=== PATIENT | female | born 1985 | race African-American/Black ===

== ENCOUNTER 2021-09-08 14:33 | Emergency (ER) | payer MEDICARE, MEDICAID ==
[~2021-09-08] VITALS: Ht 167.6 cm; Wt 61.0 kg
[~2021-09-08 14:33] MED LIST: ALBU6.7H15
[2021-09-08] MEDS ORDERED: METHYLPREDNISOLONE SOD SUCC 125 MG/2 ML VIAL IV STA (15:05)
[2021-09-08] MEDS ORDERED: IPRATROPIUM BROMIDE (0.02%) 0.5MG/2.5ML NEB HHN STA (15:05)
[2021-09-08] MEDS ORDERED: MAGNESIUM 2 G PREMIX 50 ML IV ONE (15:15)
[2021-09-08 15:39] LABS: BASOPHILS % 0.2 % (0.0-2.0); EOSINOPHILS % 0.3 % (0.0-5.0); HEMATOCRIT. 38.6 % (36.0-48.0); HEMOGLOBIN. 12.1 g/dL (12.0-16.0); LYMPHOCYTES % 23.9 % (20.0-50.0); MEAN CORPUSCULAR HEMOGLOBIN 23.6 pg (28.0-32.0); MEAN CORPUSCULAR VOLUME 75.2 fL (81.0-99.0); MONOCYTES % 12.5 % (2.0-8.0); NEUTROPHILS % 63.1 % (40.0-76.0); PLATELET 306 x1000/uL (130-400); RED BLOOD CELL COUNT 5.13 mill/uL (4.2-5.4); RED CELL DISTRIBUTION WIDTH 15.9 % (11.6-14.6)
[2021-09-08 15:44] LABS: CHLORIDE 108 mEq/L (98-107)
[2021-09-08] MEDS: ALBUTEROL (0.083%) 2.5MG/3ML NEB HHN SCH ×2 (16:07→16:08)
[2021-09-08] MEDS ORDERED: ALBU90AE INH (17:41)
[2021-09-08] MEDS ORDERED: PRED10TA PO (17:41)
[2021-09-08 18:05] VITALS: BP 139/89
== END 2021-09-08 18:07 | disposition left against medical advice (07) ==
LOC: ER 14:54
DX: J45.901 Unspecified asthma with (acute) exacerbation (principal); Z91.010 Allergy to peanuts; Z91.013 Allergy to seafood
CPT/HCPCS: 36415; 71045; 80053; 83880; 84484; 85025; 93005; 96365; 96375; 99285; J2930; J3475

== ENCOUNTER 2021-09-08 19:30 | Inpatient (IN) | payer MEDICARE, MEDICAID ==
[~2021-09-08] VITALS: Ht 170.2 cm; Wt 59.1 kg
[~2021-09-08 19:30] MED LIST changes: +ALBU90AE INH; +PRED10TA PO
[2021-09-08] MEDS ORDERED: IPRATROPIUM BROMIDE (0.02%) 0.5MG/2.5ML NEB HHN STA (20:01)
[2021-09-08] MEDS ORDERED: ALBUTEROL (0.083%) 2.5MG/3ML NEB HHN STA (20:01)
[2021-09-09] MEDS ORDERED: METHYLPREDNISOLONE SOD SUCC 125 MG/2 ML VIAL IV ONE (01:30)
[2021-09-09] MEDS ORDERED: MAGNESIUM 2 G PREMIX 50 ML IV SCH (02:00)
[2021-09-09] MEDS ORDERED: ALBUTEROL (0.083%) 2.5MG/3ML NEB HHN SCH ×2 (02:00→18:00)
[2021-09-09 04:00] VITALS: BP 126/89
[2021-09-09] MEDS: METHYLPREDNISOLONE SOD SUCC 40 MG/ML VIAL IV SCH ×3 (07:38→22:08)
[2021-09-09 08:00] VITALS: BP 123/74
[2021-09-09 08:07] VITALS: BP 112/76
[2021-09-09 11:31] LABS: BG CARBOXYHEMOGLOBIN 0.6 % (0.5-1.5); BG DEOXYHEMOGLOBIN 2.6 % (0.0-5.0); BG FRACTION INSPIRED OXYGEN 28; BG HCO3 ACT 28.9 mmol/L (22.0-26.0); BG METHEMOGLOBIN 0.4 % (0.0-1.5); BG OXYGEN SATURATION 97.4 % (92.0-98.5); BG OXYHEMOGLOBIN 96.4 % (94.0-97.0); BG PCO2 44.8 mmHg (35.0-45.0); BG PH 7.428 (7.350-7.450); BG PO2 99.1 mmHg (75.0-100.0); BG SAMPLE SITE RIGHT BRACHIAL; BG VENT MODE NASAL CANNULA
[2021-09-09 12:00] VITALS: BP 122/73
[2021-09-09] MEDS ORDERED: HYDROCODONE/ACETAMINOPHEN 5/325MG TABLET PO NR (12:00)
[2021-09-09] MEDS ORDERED: NALOXONE HCL 0.4MG/ML VIAL IV PRN ×2 (12:00→18:15)
[2021-09-09] MEDS: GUAIFENESIN 600MG ER TABLET PO SCH ×2 (14:25→22:08)
[2021-09-09 16:00] VITALS: BP 120/66
[2021-09-09 16:09] LABS: CHLORIDE 104 mEq/L (98-107)
[2021-09-09 16:13] LABS: HEMATOCRIT. 37.8 % (36.0-48.0); HEMOGLOBIN. 12.2 g/dL (12.0-16.0); LYMPHOCYTES % 8.9 % (20.0-50.0); MEAN CORPUSCULAR HEMOGLOBIN 23.5 pg (28.0-32.0); MEAN CORPUSCULAR VOLUME 72.9 fL (81.0-99.0); MEAN PLATELET VOLUME 8.5 fl (7.4-10.4); MONOCYTES % 3.6 % (2.0-8.0); NEUTROPHILS % 87.5 % (40.0-76.0); PLATELET 327 x1000/uL (130-400); RED BLOOD CELL COUNT 5.18 mill/uL (4.2-5.4); RED CELL DISTRIBUTION WIDTH 16.2 % (11.6-14.6)
[2021-09-09] MEDS ORDERED: IPRATROPIUM/ALBUTEROL 0.5-3(2.5)MG/3ML NEB HHN PRN (16:15)
[2021-09-09] MEDS: LORATADINE 10MG TABLET PO SCH (18:02)
[2021-09-09] MEDS: OXYCODONE HCL 5MG TABLET PO PRN (18:49)
[2021-09-09 20:00] VITALS: BP 107/62
[2021-09-09] MEDS: IPRATROPIUM/ALBUTEROL 0.5-3(2.5)MG/3ML NEB HHN SCH (20:59)
[2021-09-09] MEDS: FAMOTIDINE 20MG TABLET PO SCH (22:08)
[2021-09-10] VITALS: BP 102/59
[2021-09-10 04:00] VITALS: BP 115/79
[2021-09-10] MEDS: OXYCODONE HCL 5MG TABLET PO PRN ×2 (04:57→16:53)
[2021-09-10] MEDS: METHYLPREDNISOLONE SOD SUCC 40 MG/ML VIAL IV SCH ×3 (04:59→21:56)
[2021-09-10] MEDS: IPRATROPIUM/ALBUTEROL 0.5-3(2.5)MG/3ML NEB HHN SCH ×5 (05:21→21:40)
[2021-09-10 06:25] LABS: BASOPHILS % 0.1 % (0.0-2.0); HEMATOCRIT. 41.1 % (36.0-48.0); LYMPHOCYTES % 10.4 % (20.0-50.0); MEAN CORPUSCULAR HEMOGLOBIN 23.7 pg (28.0-32.0); MEAN CORPUSCULAR VOLUME 74.8 fL (81.0-99.0); MEAN PLATELET VOLUME 8.7 fl (7.4-10.4); MONOCYTES % 7.4 % (2.0-8.0); NEUTROPHILS % 82.1 % (40.0-76.0); PLATELET 356 x1000/uL (130-400); RED BLOOD CELL COUNT 5.49 mill/uL (4.2-5.4); RED CELL DISTRIBUTION WIDTH 15.7 % (11.6-14.6)
[2021-09-10 06:28] LABS: CHLORIDE 104 mEq/L (98-107)
[2021-09-10 08:00] VITALS: BP 102/70
[2021-09-10] MEDS: LIDOCAINE 5% PATCH TOP SCH (09:00)
[2021-09-10] MEDS: LORATADINE 10MG TABLET PO SCH (09:16)
[2021-09-10] MEDS: FAMOTIDINE 20MG TABLET PO SCH ×2 (09:16→21:56)
[2021-09-10] MEDS: GUAIFENESIN 600MG ER TABLET PO SCH ×2 (09:17→21:56)
[2021-09-10] MEDS: ACETAMINOPHEN 325MG TABLET PO PRN (09:29)
[2021-09-10 12:00] VITALS: BP 92/95
[2021-09-10 16:00] VITALS: BP 116/72
[2021-09-11] VITALS: BP 108/75
[2021-09-11] MEDS: IPRATROPIUM/ALBUTEROL 0.5-3(2.5)MG/3ML NEB HHN SCH ×3 (01:27→09:55)
[2021-09-11] MEDS: OXYCODONE HCL 5MG TABLET PO PRN (01:30)
[2021-09-11 04:00] VITALS: BP 107/67
[2021-09-11] MEDS: METHYLPREDNISOLONE SOD SUCC 40 MG/ML VIAL IV SCH (05:44)
[2021-09-11 08:00] VITALS: BP 90/56
[2021-09-11] MEDS: LIDOCAINE 5% PATCH TOP SCH ×2 (09:00→09:02)
[2021-09-11] MEDS: GUAIFENESIN 600MG ER TABLET PO SCH (09:01)
[2021-09-11] MEDS: LORATADINE 10MG TABLET PO SCH (09:01)
[2021-09-11] MEDS: FAMOTIDINE 20MG TABLET PO SCH (09:01)
[2021-09-11] MEDS: ACETAMINOPHEN 325MG TABLET PO PRN (10:34)
[2021-09-11 12:00] VITALS: BP 96/60
[2021-09-11] MEDS ORDERED: MONTELUKAST SODIUM 10MG TABLET PO SCH (17:00)
== END 2021-09-11 12:15 | disposition left against medical advice (07) | DRG 189 ==
LOC: ER 19:30 → 8WST 09-09 01:16 → ENRESERV 09-09 02:34
PROVIDERS: ADMIT Family Medicine Adult Medicine; ATTEND Family Medicine Adult Medicine
DX: J96.00 Acute respiratory failure, unspecified whether with hypoxia or hypercapnia (principal); J45.901 Unspecified asthma with (acute) exacerbation; F17.210 Nicotine dependence, cigarettes, uncomplicated; G89.29 Other chronic pain; Z53.29 Procedure and treatment not carried out because of patient's decision for other reasons; M54.9 Dorsalgia, unspecified; Z91.010 Allergy to peanuts; Z91.013 Allergy to seafood; Z71.6 Tobacco abuse counseling
CPT/HCPCS: 36415; 36600; 80048; 82375; 82805; 85025; 94640; 99285; J2920; J3475

== ENCOUNTER 2022-09-15 02:35 | Inpatient (IN) | payer MEDICARE, MEDICAID ==
[2022-09-15] VITALS (8 sets, daily range): BP systolic 120–142; BP diastolic 77–96
[~2022-09-15] VITALS: Ht 170.2 cm; Wt 59.0 kg
[~2022-09-15 02:35] MED LIST changes: -ALBU6.7H15
[2022-09-15] MEDS ORDERED: METHYLPREDNISOLONE SOD SUCC 125 MG/2 ML VIAL IV STA (02:52)
[2022-09-15] MEDS ORDERED: ALBUTEROL (0.083%) 2.5MG/3ML NEB HHN STA ×2 (02:52→03:56)
[2022-09-15] MEDS ORDERED: IPRATROPIUM BROMIDE (0.02%) 0.5MG/2.5ML NEB HHN STA (02:52)
[2022-09-15] MEDS ORDERED: ASPIRIN 81MG TABLET PO ONE (03:00)
[2022-09-15] MEDS ORDERED: MAGNESIUM 2 G PREMIX 50 ML IV ONE (03:15)
[2022-09-15 03:22] LABS: EOSINOPHILS % 9.8 % (0.0-5.0); HEMATOCRIT. 37.7 % (36.0-48.0); HEMOGLOBIN. 11.7 g/dL (12.0-16.0); LYMPHOCYTES % 34.9 % (20.0-50.0); MEAN CORPUSCULAR HEMOGLOBIN 23.6 pg (28.0-32.0); MEAN CORPUSCULAR VOLUME 75.6 fL (81.0-99.0); MEAN PLATELET VOLUME 8.4 fl (7.4-10.4); MONOCYTES % 9.9 % (2.0-8.0); NEUTROPHILS % 44.4 % (40.0-76.0); PLATELET 316 x1000/uL (130-400); RED BLOOD CELL COUNT 4.99 mill/uL (4.2-5.4); RED CELL DISTRIBUTION WIDTH 15.8 % (11.6-14.6)
[2022-09-15 03:46] LABS: HCG SCREEN NEGATIVE
[2022-09-15 04:31] LABS: CHLORIDE 112 mEq/L (98-107)
[2022-09-15 05:30] LABS: BG BASE EXCESS -6.3 mmol/L (-2.0-2.0); BG CARBOXYHEMOGLOBIN 0.4 % (0.5-1.5); BG DEOXYHEMOGLOBIN 1.1 % (0.0-5.0); BG FRACTION INSPIRED OXYGEN 60; BG HCO3 ACT 19.3 mmol/L (22.0-26.0); BG METHEMOGLOBIN 0.3 % (0.0-1.5); BG OXYGEN SATURATION 98.9 % (92.0-98.5); BG OXYHEMOGLOBIN 98.2 % (94.0-97.0); BG PCO2 38.5 mmHg (35.0-45.0); BG PH 7.318 (7.350-7.450); BG TOTAL HEMOGLOBIN 12.3 g/dL (12.0-18.0); BG VENT MODE MASK - BIPAP
[2022-09-15] MEDS ORDERED: IPRATROPIUM/ALBUTEROL 0.5-3(2.5)MG/3ML NEB HHN ONE (08:30)
[2022-09-15] MEDS: METHYLPREDNISOLONE SOD SUCC 125 MG/2 ML VIAL IV SCH ×3 (09:07→21:19)
[2022-09-15 09:18] LABS: BG BASE EXCESS -7.8 mmol/L (-2.0-2.0); BG CARBOXYHEMOGLOBIN 0.3 % (0.5-1.5); BG DEOXYHEMOGLOBIN 1.8 % (0.0-5.0); BG FRACTION INSPIRED OXYGEN 40; BG HCO3 ACT 17.6 mmol/L (22.0-26.0); BG METHEMOGLOBIN 0.1 % (0.0-1.5); BG OXYGEN SATURATION 98.2 % (92.0-98.5); BG OXYHEMOGLOBIN 97.8 % (94.0-97.0); BG PCO2 35.7 mmHg (35.0-45.0); BG PH 7.311 (7.350-7.450); BG PO2 114.9 mmHg (75.0-100.0); BG SAMPLE SITE RIGHT BRACHIAL; BG TOTAL HEMOGLOBIN 12.4 g/dL (12.0-18.0); BG TOTAL RESPIRATORY RATE 21 b/min; BG VENT MODE MASK - BIPAP
[2022-09-15] MEDS ORDERED: MAGNESIUM/ALUMINUM HYDROXIDE/SIMETHICONE 30ML UDC PO PRN (09:45)
[2022-09-15] MEDS ORDERED: ONDANSETRON HCL 4MG/2ML INJ IV PRN (09:45)
[2022-09-15] MEDS ORDERED: ACETAMINOPHEN 325MG TABLET PO PRN (09:45)
[2022-09-15] MEDS ORDERED: GUAIFENESIN 200MG/10ML SUGAR FREE UDC PO PRN (09:45)
[2022-09-15] MEDS: IPRATROPIUM BROMIDE (0.02%) 0.5MG/2.5ML NEB HHN SCH ×2 (11:00→20:48)
[2022-09-15] MEDS ORDERED: LORAZEPAM 1MG TABLET PO PRN (11:30)
[2022-09-15] MEDS ORDERED: NICOTINE 21MG PATCH TD NR (12:00)
[2022-09-15] MEDS: SODIUM CHLORIDE 0.9% INJ 3ML FLUSH IVF SCH ×2 (14:00→22:00)
[2022-09-15] MEDS: LORAZEPAM 2MG/ML CPJ IV PRN (21:13)
[2022-09-15] MEDS: FAMOTIDINE 20MG TABLET PO SCH (21:19)
[2022-09-16] VITALS (18 sets, daily range): BP systolic 112–158; BP diastolic 48–93
[2022-09-16] MEDS: IPRATROPIUM BROMIDE (0.02%) 0.5MG/2.5ML NEB HHN SCH ×6 (00:25→20:39)
[2022-09-16] MEDS: ZOLPIDEM TARTRATE 5MG TABLET PO PRN ×2 (00:27→20:47)
[2022-09-16] MEDS: SODIUM CHLORIDE 0.9% INJ 3ML FLUSH IVF SCH ×3 (06:00→20:47)
[2022-09-16] MEDS: LORAZEPAM 2MG/ML CPJ IV PRN ×2 (06:01→21:06)
[2022-09-16] MEDS: METHYLPREDNISOLONE SOD SUCC 125 MG/2 ML VIAL IV SCH ×3 (06:01→20:47)
[2022-09-16] MEDS: IPRATROPIUM BROMIDE (0.02%) 0.5MG/2.5ML NEB HHN PRN ×2 (06:41→17:57)
[2022-09-16] MEDS: FAMOTIDINE 20MG TABLET PO SCH ×2 (08:58→20:47)
[2022-09-16 16:43] LABS: BG BASE EXCESS -1.9 mmol/L (-2.0-2.0); BG CARBOXYHEMOGLOBIN 0.7 % (0.5-1.5); BG DEOXYHEMOGLOBIN 1.1 % (0.0-5.0); BG FRACTION INSPIRED OXYGEN 30; BG HCO3 ACT 22.7 mmol/L (22.0-26.0); BG METHEMOGLOBIN 0.3 % (0.0-1.5); BG OXYGEN SATURATION 98.9 % (92.0-98.5); BG OXYHEMOGLOBIN 97.9 % (94.0-97.0); BG PCO2 38.2 mmHg (35.0-45.0); BG PH 7.391 (7.350-7.450); BG PO2 153.1 mmHg (75.0-100.0); BG SAMPLE SITE RIGHT RADIAL; BG TOTAL HEMOGLOBIN 13.3 g/dL (12.0-18.0); BG VENT MODE MASK - BIPAP
[2022-09-17] VITALS (10 sets, daily range): BP systolic 109–159; BP diastolic 51–89
[2022-09-17] MEDS: IPRATROPIUM BROMIDE (0.02%) 0.5MG/2.5ML NEB HHN SCH ×4 (00:27→12:30)
[2022-09-17] MEDS: ACETAMINOPHEN 325MG TABLET PO PRN (03:10)
[2022-09-17] MEDS: METHYLPREDNISOLONE SOD SUCC 125 MG/2 ML VIAL IV SCH ×3 (05:11→22:59)
[2022-09-17] MEDS: LORAZEPAM 2MG/ML CPJ IV PRN ×4 (05:11→23:00)
[2022-09-17] MEDS: DIPHENHYDRAMINE 50MG/ML VIAL IV PRN (05:11)
[2022-09-17] MEDS: SODIUM CHLORIDE 0.9% INJ 3ML FLUSH IVF SCH ×3 (05:12→23:00)
[2022-09-17] MEDS: IPRATROPIUM BROMIDE (0.02%) 0.5MG/2.5ML NEB HHN PRN ×2 (09:55→16:55)
[2022-09-17] MEDS: FAMOTIDINE 20MG TABLET PO SCH ×2 (10:22→22:59)
[2022-09-17] MEDS: DEXT 5%/0.45% NACL KCL 10MEQ/L 1,000 ML IV SCH ×2 (11:10→22:59)
[2022-09-17] MEDS: LORATADINE 10MG TABLET PO SCH (14:01)
[2022-09-17] MEDS ORDERED: TERBUTALINE SULFATE 1MG/ML VIAL SUBCUT NR (15:00)
[2022-09-17] MEDS: MONTELUKAST SODIUM 10MG TABLET PO SCH (17:39)
[2022-09-17] MEDS: IPRATROPIUM/ALBUTEROL 0.5-3(2.5)MG/3ML NEB HHN SCH (20:01)
[2022-09-17] MEDS: ZOLPIDEM TARTRATE 5MG TABLET PO PRN (22:59)
[2022-09-18] VITALS (13 sets, daily range): BP systolic 79–146; BP diastolic 42–90
[2022-09-18] MEDS: IPRATROPIUM/ALBUTEROL 0.5-3(2.5)MG/3ML NEB HHN SCH ×6 (04:03→20:59)
[2022-09-18] MEDS: DEXT 5%/0.45% NACL KCL 10MEQ/L 1,000 ML IV SCH ×3 (05:03→22:25)
[2022-09-18] MEDS: METHYLPREDNISOLONE SOD SUCC 125 MG/2 ML VIAL IV SCH ×3 (05:03→18:13)
[2022-09-18] MEDS: SODIUM CHLORIDE 0.9% INJ 3ML FLUSH IVF SCH ×3 (05:03→20:14)
[2022-09-18] MEDS: LORAZEPAM 2MG/ML CPJ IV PRN ×2 (06:03→18:14)
[2022-09-18 06:36] LABS: EOSINOPHILS % 0.1 % (0.0-5.0); HEMATOCRIT. 41.7 % (36.0-48.0); HEMOGLOBIN. 13.3 g/dL (12.0-16.0); LYMPHOCYTES % 8.4 % (20.0-50.0); MEAN CORPUSCULAR HEMOGLOBIN 23.8 pg (28.0-32.0); MEAN CORPUSCULAR VOLUME 74.9 fL (81.0-99.0); MEAN PLATELET VOLUME 8.8 fl (7.4-10.4); MONOCYTES % 6.2 % (2.0-8.0); NEUTROPHILS % 85.3 % (40.0-76.0); PLATELET 307 x1000/uL (130-400); RED BLOOD CELL COUNT 5.57 mill/uL (4.2-5.4); RED CELL DISTRIBUTION WIDTH 14.9 % (11.6-14.6)
[2022-09-18 08:10] LABS: CHLORIDE 104 mEq/L (98-107); PHOSPHORUS 2.6 mg/dL (2.5-4.9)
[2022-09-18] MEDS: FAMOTIDINE 20MG TABLET PO SCH ×2 (09:34→20:14)
[2022-09-18] MEDS: LORATADINE 10MG TABLET PO SCH (09:34)
[2022-09-18] MEDS ORDERED: IPRATROPIUM/ALBUTEROL 0.5-3(2.5)MG/3ML NEB HHN PRN (14:15)
[2022-09-18] MEDS: MONTELUKAST SODIUM 10MG TABLET PO SCH (18:14)
[2022-09-18] MEDS: GUAIFENESIN 600MG ER TABLET PO SCH (20:14)
[2022-09-18] MEDS: QUETIAPINE FUMARATE 25MG TABLET PO SCH (20:14)
[2022-09-19] VITALS (11 sets, daily range): BP systolic 108–143; BP diastolic 64–89
[2022-09-19] MEDS: IPRATROPIUM/ALBUTEROL 0.5-3(2.5)MG/3ML NEB HHN SCH ×7 (00:56→20:41)
[2022-09-19] MEDS: METHYLPREDNISOLONE SOD SUCC 125 MG/2 ML VIAL IV SCH ×5 (01:08→23:26)
[2022-09-19] MEDS: SODIUM CHLORIDE 0.9% INJ 3ML FLUSH IVF SCH ×3 (05:38→21:23)
[2022-09-19] MEDS: FAMOTIDINE 20MG TABLET PO SCH ×2 (09:39→21:15)
[2022-09-19] MEDS: QUETIAPINE FUMARATE 25MG TABLET PO SCH ×2 (09:39→21:17)
[2022-09-19] MEDS: GUAIFENESIN 600MG ER TABLET PO SCH ×2 (09:39→21:15)
[2022-09-19] MEDS: LORATADINE 10MG TABLET PO SCH (09:39)
[2022-09-19] MEDS: DEXT 5%/0.45% NACL KCL 10MEQ/L 1,000 ML IV SCH ×2 (12:29→23:21)
[2022-09-19] MEDS: MONTELUKAST SODIUM 10MG TABLET PO SCH (17:22)
[2022-09-19] MEDS: ACETAMINOPHEN 325MG TABLET PO PRN (21:17)
[2022-09-20] VITALS (10 sets, daily range): BP systolic 109–153; BP diastolic 62–103
[2022-09-20] MEDS: IPRATROPIUM/ALBUTEROL 0.5-3(2.5)MG/3ML NEB HHN SCH ×5 (00:46→20:17)
[2022-09-20] MEDS: SODIUM CHLORIDE 0.9% INJ 3ML FLUSH IVF SCH ×3 (04:57→21:31)
[2022-09-20] MEDS: METHYLPREDNISOLONE SOD SUCC 125 MG/2 ML VIAL IV SCH ×3 (04:57→17:48)
[2022-09-20] MEDS: GUAIFENESIN 600MG ER TABLET PO SCH ×2 (08:38→21:31)
[2022-09-20] MEDS: LORATADINE 10MG TABLET PO SCH (08:39)
[2022-09-20] MEDS: NICOTINE 21MG PATCH TD SCH (08:39)
[2022-09-20] MEDS: FAMOTIDINE 20MG TABLET PO SCH ×2 (08:39→21:31)
[2022-09-20] MEDS: QUETIAPINE FUMARATE 25MG TABLET PO SCH ×2 (08:39→21:31)
[2022-09-20] MEDS: ACETAMINOPHEN 325MG TABLET PO PRN ×3 (08:40→21:36)
[2022-09-20] MEDS: DEXT 5%/0.45% NACL KCL 10MEQ/L 1,000 ML IV SCH (10:03)
[2022-09-20 16:22] LABS: BG BASE EXCESS 0.9 mmol/L (-2.0-2.0); BG CARBOXYHEMOGLOBIN 1.2 % (0.5-1.5); BG DEOXYHEMOGLOBIN 7.1 % (0.0-5.0); BG HCO3 ACT 23.5 mmol/L (22.0-26.0); BG METHEMOGLOBIN 0.1 % (0.0-1.5); BG OXYGEN SATURATION 92.8 % (92.0-98.5); BG OXYHEMOGLOBIN 91.6 % (94.0-97.0); BG PCO2 31.9 mmHg (35.0-45.0); BG PH 7.486 (7.350-7.450); BG SAMPLE SITE RIGHT BRACHIAL; BG TOTAL HEMOGLOBIN 14.1 g/dL (12.0-18.0); BG VENT MODE ROOM AIR
[2022-09-20] MEDS: MONTELUKAST SODIUM 10MG TABLET PO SCH (17:48)
[2022-09-21] VITALS (7 sets, daily range): BP systolic 116–146; BP diastolic 73–100
[2022-09-21] MEDS: IPRATROPIUM/ALBUTEROL 0.5-3(2.5)MG/3ML NEB HHN SCH ×4 (00:22→11:14)
[2022-09-21] MEDS: DIPHENHYDRAMINE 50MG/ML VIAL IV PRN ×2 (00:57→13:37)
[2022-09-21] MEDS: METHYLPREDNISOLONE SOD SUCC 125 MG/2 ML VIAL IV SCH ×3 (00:57→13:36)
[2022-09-21] MEDS: SODIUM CHLORIDE 0.9% INJ 3ML FLUSH IVF SCH ×2 (07:08→13:37)
[2022-09-21] MEDS: ACETAMINOPHEN 325MG TABLET PO PRN (07:09)
[2022-09-21] MEDS: NICOTINE 21MG PATCH TD SCH (09:00)
[2022-09-21] MEDS: GUAIFENESIN 600MG ER TABLET PO SCH (10:08)
[2022-09-21] MEDS: QUETIAPINE FUMARATE 25MG TABLET PO SCH (10:08)
[2022-09-21] MEDS: LORATADINE 10MG TABLET PO SCH (10:08)
[2022-09-21] MEDS: FAMOTIDINE 20MG TABLET PO SCH (10:08)
== END 2022-09-21 14:30 | disposition home or self-care (01) | DRG 189 ==
LOC: ER 02:35 → 5EST 04:52 → EDBEDREQ 08:17 → ENRESERV 14:47 → 3WST 09-20 12:25
PROVIDERS: ADMIT Internal Medicine; ATTEND Internal Medicine
PROC: 5A09457 Assistance with Respiratory Ventilation, 24-96 Consecutive Hours, Continuous Positive Airway Pressure (ICD-10-PCS; principal; 2022-09-15)
DX: J96.01 Acute respiratory failure with hypoxia (principal); J44.1 Chronic obstructive pulmonary disease with (acute) exacerbation; J45.902 Unspecified asthma with status asthmaticus; E87.3 Alkalosis; F41.1 Generalized anxiety disorder; F17.210 Nicotine dependence, cigarettes, uncomplicated; Z91.010 Allergy to peanuts; Z91.013 Allergy to seafood
CPT/HCPCS: 36415; 36600; 71045; 80053; 82375; 82805; 83735; 83880; 84100; 84484; 84703; 85025; 93005; 93306; 94640; 94644; 94660; 97110; 97162; 99291; J1200; J2060; J2930; J3105; J3475

== ENCOUNTER 2022-11-11 00:11 | Inpatient (IN) | payer MEDICARE, MEDICAID ==
[~2022-11-11] VITALS: Ht 170.2 cm; Wt 62.1 kg
[2022-11-11] MEDS ORDERED: IPRATROPIUM BROMIDE (0.02%) 0.5MG/2.5ML NEB HHN STA (00:13)
[2022-11-11] MEDS ORDERED: METHYLPREDNISOLONE SOD SUCC 125 MG/2 ML VIAL IV STA (00:13)
[2022-11-11] MEDS ORDERED: MAGNESIUM 2 G PREMIX 50 ML IV ONE (00:15)
[2022-11-11] MEDS: ALBUTEROL (0.083%) 2.5MG/3ML NEB HHN SCH ×5 (00:35→19:28)
[2022-11-11 01:05] LABS: HEMATOCRIT. 37.1 % (36.0-48.0); HEMOGLOBIN. 11.6 g/dL (12.0-16.0); MEAN CORPUSCULAR HEMOGLOBIN 23.6 pg (28.0-32.0); MEAN CORPUSCULAR VOLUME 75.4 fL (81.0-99.0); MEAN PLATELET VOLUME 9.5 fl (7.4-10.4); PLATELET 240 x1000/uL (130-400); RED BLOOD CELL COUNT 4.92 mill/uL (4.2-5.4); RED CELL DISTRIBUTION WIDTH 15.3 % (11.6-14.6)
[2022-11-11 01:11] LABS: INR 1.1; PROTHROMBIN TIME 11.4 sec (9.6-11.0)
[2022-11-11 01:14] LABS: CHLORIDE 109 mEq/L (98-107)
[2022-11-11 01:28] LABS: ETHANOL BLOOD < 10 mg/dL
[2022-11-11] MEDS ORDERED: KETOROLAC 30MG/ML VIAL IV ONE (02:00)
[2022-11-11] MEDS ORDERED: IPRATROPIUM BROMIDE (0.02%) 0.5MG/2.5ML NEB HHN NR (03:30)
[2022-11-11 08:08] LABS: PLATELET ESTIMATE NORMAL
[2022-11-11 08:55] LABS: CLARITY URINE CLEAR (CLEAR); COLOR URINE YELLOW (YELLOW); KETONES URINE TRACE (NEGATIVE); LEUKOCYTE ESTERASE URINE NEGATIVE (NEGATIVE); NITRITE URINE NEGATIVE (NEGATIVE); OCCULT BLOOD URINE NEGATIVE (NEGATIVE); PROTEIN URINE NEGATIVE (NEGATIVE); SPECIFIC GRAVITY URINE 1.018 (1.005-1.030); UROBILINOGEN URINE 0.2 E.U./dL (0.2-1.0)
[2022-11-11 09:41] LABS: *AMPHETAMINES SCREEN URINE NEGATIVE (NEGATIVE); *BARBITURATES SCREEN URINE NEGATIVE (NEGATIVE); *BENZODIAZEPINES SCREEN URINE NEGATIVE (NEGATIVE); *COCAINE SCREEN URINE NEGATIVE (NEGATIVE); METHADONE URINE SCREEN NEGATIVE (NEGATIVE); OPIATES URINE SCREEN NEGATIVE (NEGATIVE); PHENCYCLIDINE URINE SCREEN NEGATIVE (NEGATIVE)
[2022-11-11 09:43] LABS: CANNABINOID URINE SCREEN PRESUMTIVE POSITIVE (NEGATIVE)
[2022-11-11] MEDS ORDERED: CLONIDINE 0.1MG TABLET PO PRN (10:00)
[2022-11-11] MEDS ORDERED: DIPHENHYDRAMINE 50MG/ML VIAL IV PRN (10:00)
[2022-11-11] MEDS ORDERED: IPRATROPIUM/ALBUTEROL 0.5-3(2.5)MG/3ML NEB HHN PRN (10:00)
[2022-11-11] MEDS ORDERED: DEXTROSE 50% WATER 50ML SYRINGE IV PRN (10:45)
[2022-11-11] MEDS: METHYLPREDNISOLONE SOD SUCC 125 MG/2 ML VIAL IV SCH ×3 (10:50→21:56)
[2022-11-11] MEDS: ONDANSETRON HCL 4MG/2ML INJ IV PRN (11:05)
[2022-11-11] MEDS: BLOOD SUGAR DIAGNOSTIC STRIP TEST SCH ×3 (11:30→21:56)
[2022-11-11] MEDS: INSULIN LISPRO 100 UNITS/ML SUBCUT SCH ×3 (12:00→21:00)
[2022-11-11 13:03] LABS: BG BASE EXCESS -4.3 mmol/L (-2.0-2.0); BG CARBOXYHEMOGLOBIN 1.4 % (0.5-1.5); BG DEOXYHEMOGLOBIN 8.5 % (0.0-5.0); BG FRACTION INSPIRED OXYGEN 35; BG HCO3 ACT 20.1 mmol/L (22.0-26.0); BG METHEMOGLOBIN 0.3 % (0.0-1.5); BG OXYGEN SATURATION 91.4 % (92.0-98.5); BG OXYHEMOGLOBIN 89.8 % (94.0-97.0); BG PCO2 34.8 mmHg (35.0-45.0); BG PH 7.379 (7.350-7.450); BG SAMPLE SITE RIGHT RADIAL; BG TOTAL HEMOGLOBIN 12.3 g/dL (12.0-18.0); BG VENT MODE MASK - BIPAP
[2022-11-11] MEDS: ACETAMINOPHEN 325MG TABLET PO PRN (16:09)
[2022-11-11] MEDS ORDERED: NALOXONE HCL 0.4MG/ML VIAL IV PRN (19:00)
[2022-11-11] MEDS: HYDROCODONE/ACETAMINOPHEN 5/325MG TABLET PO PRN (19:11)
[2022-11-11] MEDS: IPRATROPIUM/ALBUTEROL 0.5-3(2.5)MG/3ML NEB HHN SCH ×2 (19:28→20:00)
[2022-11-12] MEDS: IPRATROPIUM/ALBUTEROL 0.5-3(2.5)MG/3ML NEB HHN SCH ×7 (00:27→21:45)
[2022-11-12] MEDS: METHYLPREDNISOLONE SOD SUCC 125 MG/2 ML VIAL IV SCH ×4 (04:08→22:13)
[2022-11-12] MEDS: BLOOD SUGAR DIAGNOSTIC STRIP TEST SCH ×4 (06:11→20:30)
[2022-11-12] MEDS: INSULIN LISPRO 100 UNITS/ML SUBCUT SCH ×4 (06:11→20:31)
[2022-11-12 08:13] LABS: HEMATOCRIT. 37.3 % (36.0-48.0); HEMOGLOBIN. 11.9 g/dL (12.0-16.0); MEAN CORPUSCULAR HEMOGLOBIN 23.8 pg (28.0-32.0); MEAN CORPUSCULAR VOLUME 74.9 fL (81.0-99.0); MEAN PLATELET VOLUME 9.3 fl (7.4-10.4); PLATELET 269 x1000/uL (130-400); RED BLOOD CELL COUNT 4.98 mill/uL (4.2-5.4); RED CELL DISTRIBUTION WIDTH 15.4 % (11.6-14.6)
[2022-11-12 08:28] LABS: CHLORIDE 106 mEq/L (98-107)
[2022-11-12] MEDS: HYDROCODONE/ACETAMINOPHEN 5/325MG TABLET PO PRN (11:44)
[2022-11-12 11:50] VITALS: BP 118/71
[2022-11-12 12:06] VITALS: BP 118/71
[2022-11-12] MEDS ORDERED: BENZONATATE 100MG CAPSULE PO PRN (12:15)
[2022-11-12] MEDS: FAMOTIDINE 20MG/2ML VIAL IV SCH ×2 (12:20→20:30)
[2022-11-12] MEDS: GUAIFENESIN 600MG ER TABLET PO SCH ×2 (12:20→20:30)
[2022-11-12] MEDS: LORATADINE 10MG TABLET PO SCH (12:20)
[2022-11-12 13:28] LABS: PLATELET ESTIMATE NORMAL
[2022-11-12 13:44] LABS: BG CARBOXYHEMOGLOBIN 0.6 % (0.5-1.5); BG DEOXYHEMOGLOBIN 1.8 % (0.0-5.0); BG FRACTION INSPIRED OXYGEN 50; BG HCO3 ACT 23.5 mmol/L (22.0-26.0); BG METHEMOGLOBIN 0.4 % (0.0-1.5); BG OXYGEN SATURATION 98.2 % (92.0-98.5); BG OXYHEMOGLOBIN 97.2 % (94.0-97.0); BG PCO2 38.6 mmHg (35.0-45.0); BG PH 7.402 (7.350-7.450); BG PO2 113.6 mmHg (75.0-100.0); BG SAMPLE SITE RIGHT RADIAL; BG TOTAL HEMOGLOBIN 12.7 g/dL (12.0-18.0); BG VENT MODE MASK - VENTI
[2022-11-12 16:00] VITALS: BP 125/80
[2022-11-12] MEDS ORDERED: MONTELUKAST SODIUM 10MG TABLET PO SCH (17:00)
[2022-11-12] MEDS: ACETAMINOPHEN 325MG TABLET PO PRN (17:31)
[2022-11-12] MEDS ORDERED: FLUT1DIS3 INH (19:06)
[2022-11-12 20:00] VITALS: BP 115/75
[2022-11-12] MEDS: ONDANSETRON HCL 4MG/2ML INJ IV PRN (20:38)
[2022-11-13] VITALS: BP 106/59
[2022-11-13] MEDS: IPRATROPIUM/ALBUTEROL 0.5-3(2.5)MG/3ML NEB HHN SCH ×5 (02:05→16:43)
[2022-11-13] MEDS: METHYLPREDNISOLONE SOD SUCC 125 MG/2 ML VIAL IV SCH ×2 (03:56→09:31)
[2022-11-13 04:00] VITALS: BP 103/63
[2022-11-13] MEDS: ONDANSETRON HCL 4MG/2ML INJ IV PRN (04:02)
[2022-11-13] MEDS: BLOOD SUGAR DIAGNOSTIC STRIP TEST SCH ×2 (05:43→12:10)
[2022-11-13 06:50] LABS: HEMATOCRIT. 38.6 % (36.0-48.0); HEMOGLOBIN. 12.2 g/dL (12.0-16.0); MEAN CORPUSCULAR HEMOGLOBIN 23.5 pg (28.0-32.0); MEAN CORPUSCULAR VOLUME 74.7 fL (81.0-99.0); MEAN PLATELET VOLUME 9.3 fl (7.4-10.4); PLATELET 265 x1000/uL (130-400); RED BLOOD CELL COUNT 5.17 mill/uL (4.2-5.4); RED CELL DISTRIBUTION WIDTH 15.3 % (11.6-14.6)
[2022-11-13 07:31] LABS: CHLORIDE 106 mEq/L (98-107)
[2022-11-13] MEDS: INSULIN LISPRO 100 UNITS/ML SUBCUT SCH ×2 (07:40→12:29)
[2022-11-13 08:00] VITALS: BP 108/61
[2022-11-13] MEDS: GUAIFENESIN 600MG ER TABLET PO SCH (08:33)
[2022-11-13] MEDS: LORATADINE 10MG TABLET PO SCH (08:33)
[2022-11-13] MEDS: FAMOTIDINE 20MG/2ML VIAL IV SCH (08:33)
[2022-11-13] MEDS: ACETAMINOPHEN 325MG TABLET PO PRN ×2 (08:40→14:32)
[2022-11-13] MEDS: HYDROCODONE/ACETAMINOPHEN 5/325MG TABLET PO PRN (09:31)
[2022-11-13] MEDS ORDERED: MONT10TA21 PO (10:43)
[2022-11-13] MEDS ORDERED: FAMO20TA8 MT (10:43)
[2022-11-13] MEDS ORDERED: GUAI600T44 PO (10:43)
[2022-11-13] MEDS ORDERED: CLAR10 PO (10:43)
[2022-11-13] MEDS ORDERED: ALBU90AE INH (10:43)
[2022-11-13] MEDS ORDERED: P20 MT (10:43)
[2022-11-13 11:39] LABS: PLATELET ESTIMATE NORMAL
[2022-11-13 11:55] VITALS: BP 108/67
[2022-11-13 16:19] VITALS: BP 120/86
== END 2022-11-13 17:17 | disposition home health service (06) | DRG 189 ==
LOC: ER 00:19 → MICUSO 01:27 → EDBEDREQ 01:29 → 8WST 11-12 13:14
PROVIDERS: ADMIT Internal Medicine; ATTEND Internal Medicine
PROC: 5A09357 Assistance with Respiratory Ventilation, Less than 24 Consecutive Hours, Continuous Positive Airway Pressure (ICD-10-PCS; principal; 2022-11-11)
DX: J96.01 Acute respiratory failure with hypoxia (principal); J44.1 Chronic obstructive pulmonary disease with (acute) exacerbation; R73.9 Hyperglycemia, unspecified; F17.210 Nicotine dependence, cigarettes, uncomplicated; F12.90 Cannabis use, unspecified, uncomplicated; Z88.8 Allergy status to other drugs, medicaments and biological substances; Z91.010 Allergy to peanuts; Z79.899 Other long term (current) drug therapy; Z79.51 Long term (current) use of inhaled steroids
CPT/HCPCS: 36415; 36600; 71045; 80048; 80053; 80305; 80320; 81003; 82375; 82805; 82962; 83036; 83880; 84484; 85025; 87426; 93005; 93970; 94640; 99291; C9803; J1885; J2405; J2930; J3475; J3490; G0480

== ENCOUNTER 2024-11-26 19:14 | Emergency (ER) | payer MEDICARE, MEDICAID ==
[~2024-11-26] VITALS: Ht 167.6 cm; Wt 65.0 kg
[~2024-11-26 19:14] MED LIST changes: +CLAR10 PO; +FAMO20TA8 MT; +FLUT1DIS3 INH; +GUAI600T44 PO; +MONT-46 PO; -PRED10TA PO
[2024-11-26 19:15] VITALS: O2SAT 96
[2024-11-26 21:20] LABS: BASOPHILS % 0.5 % (0.0-2.0); DIFFERENTIAL COMMENT 0; EOSINOPHILS % 3.7 % (0.0-5.0); HEMATOCRIT. 33.7 % (36.0-48.0); HEMOGLOBIN. 10.5 g/dL (12.0-16.0); LYMPHOCYTES % 34.2 % (20.0-50.0); MEAN CORPUSCULAR HEMOGLOBIN 23.3 pg (28.0-32.0); MEAN PLATELET VOLUME 8.9 fl (7.4-10.4); NEUTROPHILS % 53.6 % (40.0-76.0); PLATELET 315 x1000/uL (130-400); RED BLOOD CELL COUNT 4.49 mill/uL (4.2-5.4); RED CELL DISTRIBUTION WIDTH 14.3 % (11.6-14.6); WHITE BLOOD COUNT 8.7 x1000/uL (4.5-11.0)
[2024-11-26 21:25] LABS: CHLORIDE 107 mEq/L (98-107); POTASSIUM 3.9 mEq/L (3.5-5.1); SODIUM 141 mEq/L (136-145)
[2024-11-26 21:26] LABS: CARBON DIOXIDE 26 mEq/L (21-32)
[2024-11-26 21:27] LABS: CALCIUM 9.7 mg/dL (8.7-10.4)
[2024-11-26 21:31] LABS: CREATININE 0.7 mg/dL (0.6-1.0); GLUCOSE 97 mg/dL (70-105); UREA NITROGEN BLOOD 11 mg/dL (9-23)
[2024-11-26 21:32] LABS: B-HCG QUANTITATIVE 156 mIU/mL (<3)
[2024-11-26 21:33] LABS: PROTHROMBIN TIME 11.3 sec (9.6-11.0)
[2024-11-26 22:50] VITALS: BP 107/66; PULSE 72; RESP 20; TEMP 37.00296; O2SAT 100
== END 2024-11-26 22:50 | disposition home or self-care (01) ==
LOC: ER 19:59
DX: O03.9 Complete or unspecified spontaneous abortion without complication (principal); O99.511 Diseases of the respiratory system complicating pregnancy, first trimester; J45.909 Unspecified asthma, uncomplicated; R10.2 Pelvic and perineal pain; Z3A.12 12 weeks gestation of pregnancy; Z79.51 Long term (current) use of inhaled steroids
CPT/HCPCS: 36415; 76801; 80048; 84702; 85025; 86850; 86900; 99284